=== PATIENT | female | born 1940 | race African-American/Black ===

== ENCOUNTER 2017-10-04 12:16 | Outpatient (CLI) | payer MEDICARE, MEDICAID ==
[2017-10-04 12:40] VITALS: BMI 34.4
[2017-10-04 14:11] LABS: #Eosinphils 0.1 thou/uL (0.0-0.7); #Lymphocytes 2.9 thou/uL (1.20-3.40); #Monocytes 0.6 thou/uL (0.11-0.59); #Neutrophils 5.3 thou/uL (1.40-6.50); %Basophils 0.5 % (0.0-1.0); %Eosinophils 1.4 % (0.0-10.0); %Lymphocytes 32.1 % (21.0-51.0); %Monocytes 6.3 % (0.0-10.0); %Neutrophils 59.6 % (42.0-75.0); Hemoglobin 12.5 g/dL (12.0-16.0); Mean Corpuscular HGB CONC 33.8 g/dL (32.0-36.0); Mean Corpuscular Hemoglobin 29.7 pg (27.0-31.0); Mean Corpuscular Volume 87.7 fL (78.0-98.0); Mean Platelet Volume 7.6 fL (7.4-10.4); Platelet Count 274 thou/uL (130-400); RBC Distribution Width 12.6 % (11.5-14.5); Red Blood Cell (RBC) Count 4.23 mill/uL (4.20-5.40); White Blood Cell (WBC) Count 8.9 thou/uL (4.8-10.8)
[2017-10-04 14:26] LABS: Anion Gap 13 mmol/L (10-20); BUN (Urea Nitrogen) 16 mg/dL (9.8-20.1); Calc. Creatinine Clearance 87 mL/min (70-130); Calcium 9.7 mg/dL (7.8-10.44); Carbon Dioxide 25 mmol/L (23-31); Chloride 106 mmol/L (98-107); Estimated GFR-MDRD Greater than 90; Glucose 95 mg/dL (83-110); Potassium 4.1 mmol/L (3.5-5.1); Sodium 140 mmol/L (136-145)
--- NOTE | 2017-10-04 15:19 | EKG ---
Test Reason : Blood Pressure : / mmHG Vent. Rate : 067 BPM Atrial Rate : 067 BPM P-R Int : 160 ms QRS Dur : 072 ms QT Int : 382 ms P-R-T Axes : -02 011 008 degrees QTc Int : 403 ms Normal sinus rhythm Cannot rule out Anterior infarct , age undetermined Abnormal ECG No previous ECGs available Confirmed by CANDICE BLANK MD ([id number]) on 10/04/2017 3:18:58 PM Referred By: RADHA Confirmed By:CANDICE BLANK MD
== END 2017-10-04 12:17 | disposition home or self-care (01) ==
LOC: LABBT 12:16
PROVIDERS: ATTEND Surgery
DX: Z01.818 Encounter for other preprocedural examination (principal); C50.912 Malignant neoplasm of unspecified site of left female breast
CPT/HCPCS: 80048; 85025; 93005; 93010

== ENCOUNTER 2017-10-07 07:22 | Day surgery (SDC) | payer MEDICARE, MEDICAID ==
[2017-10-07] MEDS ORDERED: CEFAZOLIN/Water 2 GM/20 ML SYRINGE ONE (08:23)
[2017-10-07] MEDS ORDERED: Bupivacaine/Epinephrine 0.25% 30 ML VIAL ONE (08:47)
[2017-10-07] MEDS ORDERED: Fentanyl 100 MCG/2 ML VIAL ONE (08:57)
[2017-10-07] MEDS ORDERED: PROPOFOL 40 ML ONE (08:57)
--- NOTE | 2017-10-07 09:52 | OP ---
DATE OF PROCEDURE: 10/07/2017 PREOPERATIVE DIAGNOSIS: Left breast cancer. POSTOPERATIVE DIAGNOSIS: Left breast cancer. PROCEDURE: Tunneled central line subcutaneous port (MediPort), right internal jugular vein CT inject able. SURGEON: Dr. Garcia. ANESTHESIA: General. ANESTHESIA: TIVA with local. ESTIMATED BLOOD LOSS: Minimal. COMPLICATIONS: None. SPECIMEN: None. TECHNIQUE: The patient is taken to the operating room and placed supine on the table. After sedatio n was obtained, bilateral neck and chest is prepped and draped in a sterile fashion. Local anestheti c infiltrated over the right internal jugular vein. Intrajugular vein cannulated using a 22-gauge fi nder needle followed by a Seldinger needle. Wire was passed into the superior vena cava under fluoro scopic guidance. A nanda was made at the wire entrance site. A separate 3-cm incision was made in th e right upper chest. Subcutaneous pocket made below the lower incision. Tubing for the MediPort elvin neled from the inferior to superior incision. Introducer sheath was placed over the wire into the ward perior vena cava under fluoroscopy guidance. The dilator and wire removed. The end of the catheter threaded into the sheath and the sheath is peeled away. The tip of the catheter was at the atrial ca marsha junction. The MediPort tubing is cut to fit the MediPort at the lower incision, connected to the MediPort which is sewn to the chest wall and subcutaneous pocket using Prolene. The MediPort flushe s and draws blood without difficulties flushed with a heparin flush. The wound was irrigated and chandra sed using 3-0 Vicryl, 4-0 Monocryl, and Dermabond. The patient went to recovery in stable condition. All instrument counts, needle counts, lap counts were correct.
--- NOTE | 2017-10-07 10:57 | RAD ---
PORTABLE AP CHEST RADIOGRAPH: Date: 10-07-17 History: Post op Mediport insertion. FINDINGS: A right internal jugular vein Mediport catheter is noted in place. A portion of the catheter within t he lower neck is not imaged. Tip of the catheter overlies the mid SVC. No pneumothorax is seen and th e lungs are clear. Cardiac silhouette is magnified by projection. Thoracic aorta is mildly ectatic. P ulmonary vasculature is within normal limits. There is mild bilateral glenohumeral osteoarthropathy w ith degenerative changes in the spine. IMPRESSION: Right internal jugular vein Mediport catheter in place without evidence of a pneumothorax. POS: [facility]
== END 2017-10-07 10:54 | disposition home or self-care (01) ==
LOC: SDC 07:22
PROVIDERS: ATTEND Surgery
PROC: 0JH63WZ Insertion of Totally Implantable Vascular Access Device into Chest Subcutaneous Tissue and Fascia, Percutaneous Approach (ICD-10-PCS; principal; 2017-10-07)
DX: C50.912 Malignant neoplasm of unspecified site of left female breast (principal); I10 Essential (primary) hypertension; E78.5 Hyperlipidemia, unspecified; Z79.1 Long term (current) use of non-steroidal anti-inflammatories (NSAID); Z79.84 Long term (current) use of oral hypoglycemic drugs; Z79.891 Long term (current) use of opiate analgesic; Z79.899 Other long term (current) drug therapy
CPT/HCPCS: 71045; C1788; J1642; J2704; J3010

== ENCOUNTER 2017-10-23 11:27 | Day surgery (SDC) | payer MEDICARE, MEDICAID ==
[2017-10-23 12:36] LABS: #Basophils 0.1 thou/uL (0.0-0.2); #Eosinphils 0.2 thou/uL (0.0-0.7); #Lymphocytes 2.8 thou/uL (1.20-3.40); #Monocytes 0.6 thou/uL (0.11-0.59); #Neutrophils 2.9 thou/uL (1.40-6.50); %Basophils 0.8 % (0.0-1.0); %Eosinophils 2.9 % (0.0-10.0); %Lymphocytes 42.3 % (21.0-51.0); %Monocytes 9.4 % (0.0-10.0); %Neutrophils 44.6 % (42.0-75.0); Hemoglobin 11.2 g/dL (12.0-16.0); Mean Corpuscular HGB CONC 32.8 g/dL (32.0-36.0); Mean Corpuscular Hemoglobin 28.8 pg (27.0-31.0); Mean Corpuscular Volume 87.8 fL (78.0-98.0); Platelet Count 281 thou/uL (130-400); RBC Distribution Width 12.2 % (11.5-14.5); White Blood Cell (WBC) Count 6.6 thou/uL (4.8-10.8)
[2017-10-23 12:50] VITALS: BP 163/74; TEMP 98.3
[2017-10-23 12:56] LABS: ALT (SGPT) 17 U/L (8-55); AST (SGOT) 18 U/L (5-34); Albumin 3.9 g/dL (3.4-4.8); Alkaline Phosphatase 54 U/L (40-150); Anion Gap 11 mmol/L (10-20); BUN (Urea Nitrogen) 13 mg/dL (9.8-20.1); Bilirubin, Total 0.4 mg/dL (0.2-1.2); Calc. Creatinine Clearance 90 mL/min (70-130); Calcium 9.7 mg/dL (7.8-10.44); Carbon Dioxide 25 mmol/L (23-31); Chloride 106 mmol/L (98-107); Estimated GFR-MDRD Greater than 90; Globulin 2.6 g/dL (2.4-3.5); Glucose 83 mg/dL (83-110); LDH 170 U/L (125-220); Potassium 4.3 mmol/L (3.5-5.1); Protein, Total 6.5 g/dL (6.0-8.3); Sodium 138 mmol/L (136-145); Uric Acid 5.3 mg/dL (2.6-6.0)
[2017-10-23] MEDS: Dexamethasone 10 MG in Sodium Chloride 0.9% 50 ML IVPB SCH (13:28)
[2017-10-23] MEDS: Palonosetron HCl 0.25 MG in Sodium Chloride 0.9% 50 ML IVPB SCH (13:28)
[2017-10-23] MEDS: Sodium Chloride 0.9% 20 ML ONE (13:44)
[2017-10-23] MEDS: SODIUM CHLORIDE 0.9% IVPB SCH (14:16)
[2017-10-23] MEDS: CYCLOPHOSPHAMIDE IVPB SCH (14:16)
[2017-10-23] MEDS: Pegfilgrastim 6 MG/0.6 ML Delivery Kit SQ SCH (14:17)
[2017-10-23] MEDS: DOXORUBICIN SLOW IVP SCH (14:17)
[2017-10-23] MEDS: SODIUM CHLORIDE 0.9% SLOW IVP SCH (14:17)
== END 2017-10-23 16:23 | disposition home or self-care (01) ==
LOC: ONC/OP 11:27
PROVIDERS: ATTEND Internal Medicine Hematology & Oncology
DX: Z51.11 Encounter for antineoplastic chemotherapy (principal); C50.412 Malignant neoplasm of upper-outer quadrant of left female breast
CPT/HCPCS: 80053; 83615; 84550; 85025; 96367; 96375; 96413; 96417; A4216; J1100; J1453; J1642; J2469; J7050; J9000; J9070

== ENCOUNTER 2017-11-06 10:49 | Day surgery (SDC) | payer MEDICARE, MEDICAID ==
[2017-11-06] MEDS ORDERED: Pegfilgrastim 6 MG/0.6 ML Delivery Kit SQ SCH (11:15)
[2017-11-06] MEDS ORDERED: DOXORUBICIN 100 MG in Sodium Chloride 0.9% 50 ML IVPB SCH (11:15)
[2017-11-06] MEDS ORDERED: Palonosetron HCl 0.25 MG, Admixture Fee 1 EACH in Sodium Chloride 0.9% 50 ML IVPB SCH (11:15)
[2017-11-06] MEDS ORDERED: Cyclophosphamide 1 GM in Sodium Chloride 0.9% 250 ML 250 ML IVPB SCH (11:15)
[2017-11-06] MEDS ORDERED: Dexamethasone 10 MG, Admixture Fee 1 EACH in Sodium Chloride 0.9% 50 ML IVPB SCH (11:15)
[2017-11-06] MEDS ORDERED: Sodium Chloride 0.9% 20 ML ONE (13:03)
== END 2017-11-06 15:47 | disposition home or self-care (01) ==
LOC: ONC/OP 10:49
PROVIDERS: ATTEND Internal Medicine Hematology & Oncology
DX: Z51.11 Encounter for antineoplastic chemotherapy (principal); C50.412 Malignant neoplasm of upper-outer quadrant of left female breast; I10 Essential (primary) hypertension; E78.00 Pure hypercholesterolemia, unspecified; M19.90 Unspecified osteoarthritis, unspecified site; E11.9 Type 2 diabetes mellitus without complications; Z79.84 Long term (current) use of oral hypoglycemic drugs; Z79.1 Long term (current) use of non-steroidal anti-inflammatories (NSAID); Z79.899 Other long term (current) drug therapy
CPT/HCPCS: 36415; 80053; 82248; 83615; 84100; 84550; 96367; 96375; 96377; 96413; 96417; A4216; J1100; J1453; J1642; J2469; J2505; J7050; J9000; J9070

== ENCOUNTER 2017-11-20 10:50 | Day surgery (SDC) | payer MEDICARE, MEDICAID ==
[2017-11-20] MEDS ORDERED: PALONOSETRON HCL 0.05 MG/ML 5 ML VIAL IVP SCH (11:00)
[2017-11-20] MEDS ORDERED: Dexamethasone 10 MG/ML VIAL SLOW IVP SCH (11:00)
[2017-11-20] MEDS ORDERED: Sodium Chloride 0.9% 20 ML ONE (11:03)
[2017-11-20] MEDS ORDERED: Pegfilgrastim Onpro 6 MG/0.6 ML SQ SCH (11:15)
[2017-11-20] MEDS ORDERED: CYCLOPHOSPHAMIDE IVPB SCH (11:15)
[2017-11-20] MEDS ORDERED: DOXORUBICIN IVPB SCH (11:15)
[2017-11-20] MEDS ORDERED: SODIUM CHLORIDE 0.9% IVPB SCH ×2 (11:15)
[2017-11-20] MEDS ORDERED: Cyclophosphamide 1 GM in Sodium Chloride 0.9% 250 ML 250 ML IVPB SCH (11:15)
[2017-11-20 13:02] VITALS: BP 166/76; TEMP 98.4
== END 2017-11-20 14:57 | disposition home or self-care (01) ==
LOC: ONC/OP 10:50
PROVIDERS: ATTEND Internal Medicine Hematology & Oncology
DX: Z51.11 Encounter for antineoplastic chemotherapy (principal); C50.412 Malignant neoplasm of upper-outer quadrant of left female breast; E11.9 Type 2 diabetes mellitus without complications; E78.00 Pure hypercholesterolemia, unspecified; Z79.84 Long term (current) use of oral hypoglycemic drugs; Z79.899 Other long term (current) drug therapy
CPT/HCPCS: 36415; 80053; 82248; 83615; 84100; 84550; 96367; 96375; 96377; 96413; 96417; A4216; J1100; J1453; J1642; J2469; J2505; J7050; J9000; J9070

== ENCOUNTER 2017-12-04 11:15 | Day surgery (SDC) | payer MEDICARE, MEDICAID ==
[2017-12-04] MEDS ORDERED: Sodium Chloride 0.9% 20 ML ONE ×2 (11:22)
[2017-12-04] MEDS ORDERED: Palonosetron HCl 0.25 MG in Sodium Chloride 0.9% 50 ML IVPB SCH (11:30)
[2017-12-04] MEDS ORDERED: DOXORUBICIN IVPB SCH (11:30)
[2017-12-04] MEDS ORDERED: Dexamethasone 10 MG in Sodium Chloride 0.9% 50 ML IVPB SCH (11:30)
[2017-12-04] MEDS ORDERED: SODIUM CHLORIDE 0.9% IVPB SCH (11:30)
[2017-12-04] MEDS ORDERED: Fosaprepitant Dimeglumine 150 MG in Sodium Chloride 0.9% 250 ML 150 ML IVPB SCH (11:30)
[2017-12-04] MEDS ORDERED: Pegfilgrastim Onpro 6 MG/0.6 ML SQ SCH (11:45)
[2017-12-04] MEDS ORDERED: Cyclophosphamide 1 GM in Sodium Chloride 0.9% 250 ML 250 ML IVPB SCH (11:45)
[2017-12-04 11:55] VITALS: BP 156/67; TEMP 98.3
== END 2017-12-04 16:22 | disposition home or self-care (01) ==
LOC: ONC/OP 11:15
PROVIDERS: ATTEND Internal Medicine Hematology & Oncology
DX: Z51.11 Encounter for antineoplastic chemotherapy (principal); C50.412 Malignant neoplasm of upper-outer quadrant of left female breast; E11.9 Type 2 diabetes mellitus without complications; E78.00 Pure hypercholesterolemia, unspecified; Z79.84 Long term (current) use of oral hypoglycemic drugs; Z79.899 Other long term (current) drug therapy
CPT/HCPCS: 36415; 80053; 82248; 83615; 84100; 84550; 96367; 96375; 96377; 96413; 96417; J1100; J1453; J1642; J2469; J2505; J7050; J9000; J9070